=== PATIENT | male | born 1985 | race Caucasian/White ===

== ENCOUNTER 2018-01-03 14:22 | Emergency (ER) | payer BC ==
[2018-01-03] MEDS ORDERED: Zofran 4 MG/2 ML VIAL IV ONE (14:31)
[2018-01-03] MEDS ORDERED: Sodium Chloride 0.9% 1000 ML 1,000 ML IV STA (14:31)
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
[2018-01-03] MEDS ORDERED: Zofran 4 MG/2 ML VIAL ONE (14:57)
[2018-01-03] MEDS ORDERED: Sodium Chloride 0.9% 1000 ML 1,000 ML ONE (14:57)
[2018-01-03 15:11] LABS: BASOPHIL % 0.5 % (0.0-0.4); Basophil (Absolute #) 0.05 (0-0.4); Eosinophil % 1.6 % (0.00-5.0); Eosinophil (Absolute #) 0.15 (0-0.5); Granulocyte Absolute (ANC) 6.69 (1.4-6.9); Granulocytes % 71.1 % (36.0-66.0); Hematocrit 45.4 % (42-50); Hemoglobin 15.7 gm/dl (12.5-18.0); Lymphocyte (Absolute #) 1.31 (1.0-4.6); Lymphocytes % 13.9 % (24.0-44.0); Mean Cell Volume 83.6 fl (78-100); Mean Corpuscular Hemoglobin 28.9 pg (26-32); Mean Corpuscular Hgb Concent. 34.6 g/dl (32-36); Mean Platelet Volume 9.1 fl (6-9.5); Monocyte (Absolute #) 1.21 (0.0-1.3); Monocytes % 12.9 % (0.0-12.0); Platelet Count 364 K/mm3 (150-450); Red Blood Count 5.43 M/mm3 (4.1-5.6); Red Cell Distribution Width 13.8 % (11.5-14.0); White Blood Count 9.4 K/mm3 (4.0-10.5)
[2018-01-03 15:57] LABS: ALBUMIN 5.3 g/dL (3.5-5.0); ALKALINE PHOSPHATASE 85 U/L (38-126); ANION GAP 18.6 MEQ/L (5-15); BLOOD UREA NITROGEN 13 mg/dL (9-20); CHLORIDE 107 mmol/L (98-107); Calcium 10.2 mg/dL (8.4-10.2); Carbon Dioxide 22 mmol/L (22-30); Creatinine 1 1.22 mg/dL (0.66-1.25); Glucose 86 mg/dL (74-106); Potassium 3.6 mmol/L (3.5-5.1); SGOT/AST 36 U/L (17-59); SGPT/ALT 31 U/L (0-50); SODIUM 144 mmol/L (137-145); Total Protein 8.3 g/dL (6.3-8.2)
[2018-01-03 15:58] LABS: ACETAMINOPHEN < 10 ug/ml (10-30); ETHYL ALCOHOL < 10 mg/dL (0-10)
[2018-01-03 17:09] VITALS: BP 122/93; PULSE 65; O2SAT 99
== END 2018-01-03 17:46 | disposition home or self-care (01) ==
LOC: ED 14:22
DX: F30.9 Manic episode, unspecified (principal)
CPT/HCPCS: 36415; 80053; 80178; 80307; 85025; 90791; 93005; 96360; 96374; 99284; G0481; J2405; Q3014; G0480

== ENCOUNTER 2018-01-03 21:33 | Emergency (ER) | payer BC ==
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
[2018-01-03] MEDS ORDERED: Sodium Chloride 0.9% 1000 ML 1,000 ML IV STA (22:27)
[2018-01-03] MEDS ORDERED: Sodium Chloride 0.9% 1000 ML 1,000 ML ONE (22:33)
[2018-01-03 23:58] LABS: Barbiturate,Urine NEGATIVE (NEGATIVE); Benzodiazepine,Urine NEGATIVE (NEGATIVE); Cocaine,Urine NEGATIVE (NEGATIVE); Methadone,Urine NEGATIVE (NEGATIVE); Opiate,Urine NEGATIVE (NEGATIVE); PCP,Urine NEGATIVE (NEGATIVE); THC,Urine POSITIVE (NEGATIVE)
[2018-01-04 00:42] LABS: Amphetamine,Urine POSITIVE (NEGATIVE)
[2018-01-04 01:03] VITALS: PULSE 101
[2018-01-04 01:54] VITALS: O2SAT 97
[2018-01-04 02:47] VITALS: BP 125/85
== END 2018-01-04 02:52 | disposition short-term general hospital (02) ==
LOC: ED 21:33
DX: F31.2 Bipolar disorder, current episode manic severe with psychotic features (principal); F19.10 Other psychoactive substance abuse, uncomplicated
CPT/HCPCS: 36000; 80307; 96360; 99284; P9612; 36415; 80053; 80178; 85025; 90791; 93005; 96374; G0481; J2405; Q3014; G0480

== ENCOUNTER 2019-09-06 12:24 | Emergency (ER) | payer BC ==
[2019-09-06] MEDS ORDERED: TORAdol 30 mg Injection IM ONE (12:37)
[2019-09-06] MEDS ORDERED: TORAdol 30 mg Injection ONE (12:40)
[2019-09-06 12:41] VITALS: O2SAT 99
[2019-09-06] MEDS ORDERED: XYLOCAINE 1% HCL 20 ML MDV ONE (12:52)
[2019-09-06] MEDS ORDERED: XYLOCAINE 1% HCL 20 ML MDV IJ ONE (13:20)
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
[2019-09-06 13:35] VITALS: BP 141/108; PULSE 104
--- NOTE | 2019-09-06 20:26 | XRAY ---
Indication: Pain following injury. Comparison: None 3 view right hand demonstrates 1st MCP dislocation with soft tissue swelling. Tiny lateral soft tissue calcification without obvious donor site, possible fracture fragment versus heterotopic calcification. No other bony, articular, or soft tissue abnormalities.
--- NOTE | 2019-09-06 20:32 | XRAY ---
Indication: Post reduction 1st MCP dislocation. Comparison: Taken earlier in the day. 1st attempted post reduction images unsuccessful. 2nd attempted post reduction images demonstrate successful reduction of 1st MCP dislocation in good alignment. Stable tiny soft tissue calcification adjacent to 1st metacarpal head.
== END 2019-09-06 13:51 | disposition home or self-care (01) ==
LOC: ED 12:24
DX: S63.104A Unspecified dislocation of right thumb, initial encounter (principal); Y04.0XXA Assault by unarmed brawl or fight, initial encounter; Y93.9 Activity, unspecified; S00.12XA Contusion of left eyelid and periocular area, initial encounter; Z72.0 Tobacco use
CPT/HCPCS: 26700; 73130; 96372; 99284; J1885